=== PATIENT | female | born 1990 | race Caucasian/White ===

== ENCOUNTER 2020-01-03 21:11 | Emergency (ER) | payer OTHER, SELFPAY ==
--- NOTE | 2020-01-03 21:44 | PCAUD ---
Patient ambulated out of front doors while crying and shaking her head. RN in team C attempted to stop patient to ask if she needed assistance. Patient kept walking. Dr Sarmiento and teacher's aide aware.
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
== END 2020-01-03 22:46 | disposition home or self-care (01) ==
LOC: ANHED 22:34
PROVIDERS: Emergency Provider Emergency Medicine; PCP Nurse Practitioner Family
DX: T74.21XA Adult sexual abuse, confirmed, initial encounter (principal)
CPT/HCPCS: 99281

== ENCOUNTER 2020-01-07 09:56 | Emergency (ER) | payer OTHER, SELFPAY ==
[2020-01-07 10:05] VITALS: BP 128/67; PULSE 95; RESP 18; TEMP 36.9; O2SAT 100
--- NOTE | 2020-01-07 10:43 | PC.NURSE ---
Call for Help notified of patient's arrival.
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
--- NOTE | 2020-01-07 11:23 | PC.NURSE ---
SOTERO Dumont, at bedside for medical clearance exam. Preparing to continue with evidence collection kit.
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
[2020-01-07] MEDS: metroNIDAZOLE 250 MG TABLET 2000 MG PO (12:15)
[2020-01-07] MEDS: AZITHROMYCIN 250 MG TABLET 1000 MG PO (12:15)
[2020-01-07] MEDS: cefTRIAXone 250 MG VIAL IM (12:16)
[2020-01-07] MEDS: LIDOCAINE HCL 1% LOCAL INJ 20 ML VIAL (12:16)
[2020-01-07] MEDS: ONDANSETRON HCL ODT 4 MG TABLET PO (12:20)
--- NOTE | 2020-01-07 14:40 | PC.NURSE ---
Kit in this RN's position until it was released to Support Director Lanre Avila of [facility] (Badge #[id number]).
== END 2020-01-07 12:51 | disposition home or self-care (01) ==
LOC: ANHED 12:14
PROVIDERS: Emergency Provider Emergency Medicine; PCP Nurse Practitioner Family
DX: T74.21XA Adult sexual abuse, confirmed, initial encounter (principal); Y07.01 Husband, perpetrator of maltreatment and neglect
CPT/HCPCS: 81025; 96372; 99285; A9270; J0696

== ENCOUNTER 2020-08-15 10:07 | Emergency (ER) | payer OTHER, SELFPAY ==
--- NOTE | ~2020-08-15 | XR_ITS ---
XR chest 1V portable DATE: 08/15/2020 11:50 INDICATION: Shortness of breath. Body aches. TECHNIQUE: Portable upright AP view on 08/15/2020 1149 hours COMPARISON: None FINDINGS: No pulmonary infiltrate or consolidation, pleural effusion or pulmonary vascular congestion or pneumothorax. Heart size is within normal limits. No hilar or mediastinal enlargement. Included s keletal structures are unremarkable other than mild levoscoliosis of the thoracic spine. IMPRESSION: No active cardiopulmonary disease Reviewed, dictated and finalized at location A. VERY ANALYST
[2020-08-15 10:52] VITALS: BP 129/99; PULSE 79; RESP 18; TEMP 36.6; O2SAT 100
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
[2020-08-15 12:40] VITALS: BP 132/76; PULSE 84; RESP 16; O2SAT 100
[2020-08-15 21:25] LABS: SARS-CoV-2 RNA PCR Negative
== END 2020-08-15 12:50 | disposition home or self-care (01) ==
PROVIDERS: Emergency Provider Emergency Medicine; PCP Nurse Practitioner Family
DX: J06.9 Acute upper respiratory infection, unspecified (principal); Z20.828 Contact with and (suspected) exposure to other viral communicable diseases
CPT/HCPCS: 71045; 87635; 99283; C9803; U0003

== ENCOUNTER 2021-10-17 12:46 | Emergency (ER) | payer OTHER, SELFPAY ==
[2021-10-17 12:58] VITALS: BP 126/66; PULSE 90; RESP 18; TEMP 37.4; O2SAT 98
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
[2021-10-17] MEDS: cefTRIAXone 500 MG, LIDOCAINE HCL 1% LOCAL INJ 1 ML IM (13:39)
== END 2021-10-17 13:52 | disposition home or self-care (01) ==
PROVIDERS: Emergency Provider Registered Nurse; PCP Nurse Practitioner Family
DX: Z20.2 Contact with and (suspected) exposure to infections with a predominantly sexual mode of transmission (principal); F41.9 Anxiety disorder, unspecified; F32.9 Major depressive disorder, single episode, unspecified
CPT/HCPCS: 87491; 87591; 87661; 96372; 99214; G0463; J0696

== ENCOUNTER 2022-04-21 05:53 | Emergency (ER) | payer OTHER, SELFPAY ==
--- NOTE | ~2022-04-21 | CT_ITS ---
EXAMINATION: CT cervical spine wo con DATE: 04/21/2022 07:41 INDICATION: Neck injury. TECHNIQUE: Computed tomography (CT) of the cervical spine was performed without intravenous contrast. Automated exposure control and iterative reconstruction technique were employed. The dose-length pro duct was 223.95 mGy-cm. COMPARISON: Cervical spine radiographs 10/20/2018 FINDINGS: There is abundant cerumen in left external auditory canal. There is kyphosis of cervical sp ine. Vertebral body heights and intervertebral disc heights are normal. The facet joints are normal. No neural foraminal stenosis or central canal stenosis. IMPRESSION: 1. No fracture. Reviewed, dictated and finalized at location A. IMPRESSION: 1. No fracture.
--- NOTE | ~2022-04-21 | CT_ITS ---
EXAMINATION: CT brain wo con DATE: 04/21/2022 07:40 INDICATION: Head injury. TECHNIQUE: Computed tomography (CT) of the head was performed without intravenous contrast. The mA wa s adjusted according to patient size. Iterative reconstruction technique was employed. The dose-lengt h product was 605.33 mGy-cm. COMPARISON: None FINDINGS: There is no intracranial hemorrhage, acute infarction, or abnormal intracranial mass lesion . The ventricles are normal in size. The orbits are normal. There is mucosal thickening in the parana luba sinuses. The mastoid air cells are normal. IMPRESSION: 1. Normal brain. Reviewed, dictated and finalized at location A. IMPRESSION: 1. Normal brain.
--- NOTE | ~2022-04-21 | XR_ITS ---
EXAMINATION: XR hand RT min 3V DATE: 04/21/2022 07:32 INDICATION: Right hand injury and pain. TECHNIQUE: 3 views of right hand were obtained. COMPARISON: None. FINDINGS: Bone alignment is normal. No fracture. Joint spaces are well maintained. IMPRESSION: 1. Normal right hand. Reviewed, dictated and finalized at location A. IMPRESSION: 1. Normal right hand.
--- NOTE | ~2022-04-21 | XR_ITS ---
EXAMINATION: XR hand LT min 3V DATE: 04/21/2022 07:31 INDICATION: Left hand injury. TECHNIQUE: 3 views of left hand were obtained. COMPARISON: None. FINDINGS: Bone alignment is normal. No fracture. Joint spaces are well maintained. IMPRESSION: 1. Normal left hand. Reviewed, dictated and finalized at location A. IMPRESSION: 1. Normal left hand.
[2022-04-21 05:57] VITALS: BP 135/73; PULSE 97; RESP 16; TEMP 36.4; O2SAT 99
--- NOTE | 2022-04-21 07:11 | PC.NURSE ---
Patient report received from ASTRID Weiss. All questions answered and care of patient assumed.
--- NOTE | 2022-04-21 07:13 | PC.NURSE ---
Dr. Hayden at bedside to assess pt.
[2022-04-21] MEDS: IBUPROFEN 600 MG TABLET PO (07:28)
[2022-04-21 07:30] VITALS: O2SAT 99
--- NOTE | 2022-04-21 07:33 | PC.NURSE ---
Patient off unit to CT.
[2022-04-21 07:50] VITALS: O2SAT 98
[2022-04-21 08:00] VITALS: O2SAT 99
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
[2022-04-21 08:15] VITALS: O2SAT 100
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
[2022-04-21] MEDS: TETANUS,DIPHTHERIA,AC PERTUSSIS ADULT (0.5 ML) BOOSTRIX IM (08:26)
[2022-04-21 08:28] VITALS: BP 112/76
== END 2022-04-21 08:38 | disposition home or self-care (01) ==
PROVIDERS: Emergency Provider Emergency Medicine; PCP Nurse Practitioner Family
DX: S00.93XA Contusion of unspecified part of head, initial encounter (principal); S60.222A Contusion of left hand, initial encounter; S60.221A Contusion of right hand, initial encounter; S40.022A Contusion of left upper arm, initial encounter; S16.1XXA Strain of muscle, fascia and tendon at neck level, initial encounter; Y04.0XXA Assault by unarmed brawl or fight, initial encounter; F41.9 Anxiety disorder, unspecified; F32.9 Major depressive disorder, single episode, unspecified
CPT/HCPCS: 70450; 72125; 73130; 81025; 90471; 90715; 99284; A9270